=== PATIENT | female | born 1970 | race African-American/Black ===

== ENCOUNTER 2017-01-30 15:33 | Emergency (ER) | payer MEDICAID ==
[~2017-01-30] VITALS: Ht 170.2 cm; Wt 45.4 kg
[~2017-01-30 15:33] MED LIST: AMBIEN10 MG ORAL; ATIVAN1 MG ORAL
--- NOTE | 2017-01-30 15:51 | Emergency Room Report ---
History of Present Illness General Chief Complaint: Behavioral Complaint Source: EMS Present Illness HPI Patient is a 46-year-old female with history of polysubstance abuse who presents today via EMS with auditory hallucinations. The patient adamantly denies suicidal and homicidal ideation. The patient is a poor historian, history is limited. Allergies: Coded Allergies: No Known Allergies (Unverified , 09/27/13) Patient History Last Menstrual Period: unk Reviewed Nursing Documentation: PMH: Agreed, PSxH: Agreed Nursing Documentation-PMH Past Medical History: No Stated History Review of Systems Psychiatric: Reports: hallucinations All Other Systems: negative except mentioned in HPI Physical Exam Vital Signs Date Time Temp Pulse Resp B/P (MAP) Pulse Ox O2 Delivery O2 Flow Rate FiO2 01/30/17 15:29 99.0 108 18 150/100 100 Room Air General Appearance: other - unkempt Psychiatric: other - responding to internal stimuli, flight of ideas, inappropriate eye contact Medical Decision Making PA Attestation supervising physician Dr. Ramsey Diagnostic Impression: Primary Impression: Amphetamine-induced psychotic disorder Additional Impressions: Amphetamine abuse Marijuana abuse ER Course Patient presents today in acute amphetamine psychosis. UDS reveals patient is positive for amphetamines and marijuana. Patient is given the 2 mg IM Ativan and allowed to sleep in the ED. At multiple reevaluations made. Reevaluation at 1913, patient is alert, ANO x4. Patient is stable for discharge and instructed to avoid amphetamines. The patient understands and is agreeable with plan. Reevaluation Time: 19:14 Last Vital Signs Date Time Temp Pulse Resp B/P (MAP) Pulse Ox O2 Delivery O2 Flow Rate FiO2 01/30/17 15:29 99.0 108 18 150/100 100 Room Air Status: improved Disposition: HOME, SELF-CARE Condition: Stable Patient Instructions: Self-Destructive Behavior Olamide Baker Jan 30, 2017 15:51
[2017-01-30] MEDS ORDERED: LORazepam Inj 2mg/ml 1ml IM ONE (16:00)
[2017-01-30 17:37] VITALS: BP 101/69
[2017-01-30 19:12] VITALS: BP 108/70
[2017-01-30 21:15] VITALS: BP 115/72
[2017-01-30 21:50] VITALS: BP 110/76
[2017-01-30 22:00] VITALS: BP 110/76
== END 2017-01-30 22:00 | disposition home or self-care (01) ==
LOC: EDBD 15:33 → EMR 16:00
DX: F15.151 Other stimulant abuse with stimulant-induced psychotic disorder with hallucinations (principal); F06.8 Other specified mental disorders due to known physiological condition; F12.10 Cannabis abuse, uncomplicated
CPT/HCPCS: 80300; 96372; 99284

== ENCOUNTER 2018-12-29 08:07 | Emergency (ER) | payer MEDICAID ==
[~2018-12-29] VITALS: Ht 167.6 cm; Wt 72.6 kg
[2018-12-29] MEDS ORDERED: Haloperidol 5mg/ml Inj IM ONE (08:15)
[2018-12-29] MEDS ORDERED: DiphenhydrAMINE 50mg/ml Inj IM ONE (08:15)
[2018-12-29] MEDS ORDERED: LORazepam Inj 2mg/ml 1ml IM ONE (08:15)
--- NOTE | 2018-12-29 08:29 | Emergency Room Report ---
History of Present Illness General Chief Complaint: Behavioral Complaint Source: Patient Present Illness HPI 48-year-old female history of psychiatric disorder presents with acute psychotic break this morning, unknown aggravating relieving factors severity is severe symptoms are constant, patient is unable to give a proper history boyfriend states that she does have psychiatric illness that has since been resolved she is off any medications, he is unsure what medications she takes history is limited Allergies: Coded Allergies: No Known Allergies (Unverified , 09/27/13) Patient History Limited by: medical condition - Acutely psychotic Past Medical History: see triage record Last Menstrual Period: n/a Reviewed Nursing Documentation: PMH: Agreed; PSxH: Agreed Nursing Documentation-PMH Past Medical History: No Stated History Review of Systems All Other Systems: limited - Acutely psychotic Physical Exam Vital Signs Date Time Temp Pulse Resp B/P (MAP) Pulse Ox O2 Delivery O2 Flow Rate FiO2 12/29/18 07:57 98.2 121 18 197/118 (144) 98 Room Air Sp02 EP Interpretation: reviewed, normal General Appearance: well appearing, no apparent distress, alert Head: normocephalic, atraumatic Eyes: bilateral eye PERRL, bilateral eye EOMI ENT: uvula midline, moist mucus membranes Neck: supple, thyroid normal, supple/symm/no masses Respiratory: lungs clear, no respiratory distress, no retraction, no accessory muscle use Cardiovascular #1: normal peripheral pulses, regular rate, rhythm, no edema, no gallop, no murmur Gastrointestinal: non tender, soft, no guarding, no rebound Musculoskeletal: normal inspection Neurologic: alert, responsive - Responding to external stimuli Psychiatric: other - Responding to external stimuli, babbling incoherently Skin: no rash, warm/dry Medical Decision Making Diagnostic Impression: Primary Impression: Behavioral disorder Additional Impressions: Acute psychosis Cocaine abuse ER Course 48-year-old female history of psychiatric disease presents with acute altered mental status differential diagnosis includes drug-induced, stroke, acute psychosis Evaluation 1 PM, patient is now back to baseline patient is not endorsing using any drugs, she is not suicidal or homicidal, Patient is back to baseline will disposition patient home with return precautions Laboratory Tests Test 12/29/18 08:15 White Blood Count 13.1 K/UL (4.8-10.8) H Red Blood Count 5.10 M/UL (4.20-5.40) Hemoglobin 14.2 G/DL (12.0-16.0) Hematocrit 43.9 % (37.0-47.0) Mean Corpuscular Volume 86 FL (80-99) Mean Corpuscular Hemoglobin 27.9 PG (27.0-31.0) Mean Corpuscular Hemoglobin Concent 32.4 G/DL (32.0-36.0) Red Cell Distribution Width 12.8 % (11.6-14.8) Platelet Count 315 K/UL (150-450) Mean Platelet Volume 6.3 FL (6.5-10.1) L Neutrophils (%) (Auto) 57.3 % (45.0-75.0) Lymphocytes (%) (Auto) 32.1 % (20.0-45.0) Monocytes (%) (Auto) 7.8 % (1.0-10.0) Eosinophils (%) (Auto) 1.1 % (0.0-3.0) Basophils (%) (Auto) 1.7 % (0.0-2.0) Sodium Level 142 MMOL/L (136-145) Potassium Level 4.1 MMOL/L (3.5-5.1) Chloride Level 107 MMOL/L (98-107) Carbon Dioxide Level 25 MMOL/L (21-32) Anion Gap 10 mmol/L (5-15) Blood Urea Nitrogen 10 mg/dL (7-18) Creatinine 1.2 MG/DL (0.55-1.30) Estimate Glomerular Filtration Rate 58.7 mL/min (>60) Glucose Level 114 MG/DL (74-106) H Calcium Level 9.5 MG/DL (8.5-10.1) Total Bilirubin 0.4 MG/DL (0.2-1.0) Aspartate Amino Transferase (AST) 23 U/L (15-37) Alanine Aminotransferase (ALT) 21 U/L (12-78) Alkaline Phosphatase 51 U/L (46-116) Total Protein 7.9 G/DL (6.4-8.2) Albumin 4.3 G/DL (3.4-5.0) Globulin 3.6 g/dL Albumin/Globulin Ratio 1.2 (1.0-2.7) Salicylates Level 6.3 ug/mL (2.8-20) Urine Opiates Screen Negative (NEGATIVE) Acetaminophen Level < 2 MCG/ML (10-30) L Urine Barbiturates Screen Negative (NEGATIVE) Phencyclidine (PCP) Screen Negative (NEGATIVE) Urine Amphetamines Screen Negative (NEGATIVE) Urine Benzodiazepines Screen Negative (NEGATIVE) Urine Cocaine Screen Positive (NEGATIVE) H Urine Marijuana (THC) Screen Positive (NEGATIVE) H Serum Alcohol < 3 mg/dL CT/MRI/US Diagnostic Results CT/MRI/US Diagnostic Results : Impression CT brain no acute processes Last Vital Signs Date Time Temp Pulse Resp B/P (MAP) Pulse Ox O2 Delivery O2 Flow Rate FiO2 12/29/18 07:57 98.2 121 18 197/118 (144) 98 Room Air Disposition: HOME, SELF-CARE Condition: Stable Referrals: [facility] Carlos Manuel Dvelin [facility] Patient Instructions: Psychosis, Stimulant Use Disorder-Cocaine Additional Instructions: The patient was provided with discharge instructions, notified to follow-up with a primary care doctor and or specialist in the next 24-48 hours, and to return to the ED if they have worsening of their symptoms. Please note that this report is being documented using [employer] technology. This can lead to erroneous entry secondary to incorrect interpretation by the dictating instrument. Dru Coats MD Dec 29, 2018 08:29
[2018-12-29] MEDS ORDERED: LORazepam Inj 2mg/ml 1ml ONE (08:33)
[2018-12-29] MEDS ORDERED: DiphenhydrAMINE 50mg/ml Inj ONE (08:33)
[2018-12-29] MEDS ORDERED: Haloperidol 5mg/ml Inj ONE (08:34)
[2018-12-29 08:45] LABS: BASOPHILS % (AUTO) 1.7 % (0.0-2.0); EOSINOPHILS % (AUTO) 1.1 % (0.0-3.0); HEMATOCRIT 43.9 % (37.0-47.0); HEMOGLOBIN 14.2 G/DL (12.0-16.0); LYMPHOCYTES % (AUTO) 32.1 % (20.0-45.0); MEAN CORPUSCULAR VOLUME 86 FL (80-99); MONOCYTES % (AUTO) 7.8 % (1.0-10.0); NEUTROPHILS % (AUTO) 57.3 % (45.0-75.0); PLATELET COUNT 315 K/UL (150-450); RED CELL DISTRIBUTION WIDTH 12.8 % (11.6-14.8); WHITE BLOOD COUNT 13.1 K/UL (4.8-10.8)
--- NOTE | 2018-12-29 08:48 | NUR ---
ED Nurse Note: yovany alvarado from home boyfriend called because pt was acting bizzare. Pt denies pain but rambling unable to make senxse. SL established blood and urine was sent . pt medicated boyfriend at bedside. Boyfriend provided pt's psychiatrists number. will monitor.
[2018-12-29 08:57] LABS: ANION GAP 10 mmol/L (5-15); BLOOD UREA NITROGEN 10 mg/dL (7-18); CALCIUM 9.5 MG/DL (8.5-10.1); CARBON DIOXIDE 25 MMOL/L (21-32); CHLORIDE 107 MMOL/L (98-107); CREATININE 1.2 MG/DL (0.55-1.30); POTASSIUM 4.1 MMOL/L (3.5-5.1); SODIUM 142 MMOL/L (136-145)
[2018-12-29 09:00] LABS: ALANINE AMINOTRANSFERASE 21 U/L (12-78); ALBUMIN 4.3 G/DL (3.4-5.0); ALBUMIN/GLOBULIN RATIO 1.2 (1.0-2.7); ALKALINE PHOSPHATASE 51 U/L (46-116); ASPARTATE AMINO TRANSFERASE 23 U/L (15-37); BILIRUBIN,TOTAL 0.4 MG/DL (0.2-1.0)
--- NOTE | 2018-12-29 09:19 | NUR ---
ED Nurse Note: pt back from ct. uds + .
--- NOTE | 2018-12-29 09:45 | Diagnostic Imaging Report ---
Indications: Altered mental status Technique: Spiral acquisitions obtained through the brain. Angled axial and coronal 5 x 5 mm slices were reconstructed. Total dose length product 1347.08 mGycm. CTDI vol(s) 70.38 mGy. Dose reduction achieved using automated exposure control Comparison: None. Findings: No acute intracranial hemorrhage or edema, mass effect, or midline shift. Normal koroma-white differentiation. Intact calvarium. Visualized orbits and sinuses are unremarkable. The mastoids are clear Impression: Negative The CT scanner at [facility] is accredited by the [employer] and the scans are performed using protocols designed to limit radiation exposure to as low as reasonably achievable to attain images of sufficient resolution adequate for diagnostic evaluation.
--- NOTE | 2018-12-29 10:14 | NUR ---
ED Nurse Note: pt sleeping ivf up still infusing will asses in 30 minutes.
--- NOTE | 2018-12-29 10:16 | NUR ---
ED Nurse Note: Boyfriend : Surjit Allen
--- NOTE | 2018-12-29 11:11 | NUR ---
ED Nurse Note: pt sleeping vss 2nd ivf up infusing will monitor.
[2018-12-29 11:12] VITALS: BP 160/98
--- NOTE | 2018-12-29 14:00 | NUR ---
ED Nurse Note: pt gave verbal consent to ermd to discuss pt's medical info with yonas Allen. I was present at bedside during verbal consent.
[2018-12-29 14:10] VITALS: BP 148/96
--- NOTE | 2018-12-29 14:10 | NUR ---
ED Nurse Note: Pt cleared by health care Provider for discharge. DC instructions was given and explained to pt and verbalized understanding of teachings. All medical deviecs such as ID band removed. Pt is AAO x4, ambulatory and left with all personal belongings.
== END 2018-12-29 14:10 | disposition home or self-care (01) ==
LOC: EDBD 08:07 → EMR 08:30
DX: F23 Brief psychotic disorder (principal); F14.10 Cocaine abuse, uncomplicated
CPT/HCPCS: 36415; 70450; 80053; 80196; 80307; 80329; 85025; 96360; 96361; 96372; J1200; J1630; Z7502; 99284